=== PATIENT | female | born 2000 | race Caucasian/White ===

== ENCOUNTER → 2023-05-12 16:44 | Outpatient (CLI) | payer SELFPAY ==
[2023-05-12 17:29] LABS: Alanine Aminotransferase 44 U/L (12-78); Albumin Level 4.7 g/dl (3.5-5.0); Albumin/Globulin Ratio 1.8 (1.1-1.8); Alkaline Phosphatase 79 U/L (38-126); Anion Gap 17.1 mEq/L (5-15); Aspartate Amino Transferase 35 U/L (14-36); Bilirubin,Indirect 0.5 mg/dL (0.0-0.9); Bilirubin,Total 0.5 mg/dl (0.2-1.3); Bilirubin,Unconjugated 0.6 mg/dL (0.0-1.1); Blood Urea Nitrogen 16 mg/dl (7-17); Calcium 9.1 mg/dl (8.4-10.2); Carbon Dioxide 22 mmol/L (22.0-30.0); Chloride 104 mmol/L (98-107); Creatine Kinase 51 U/L (30-135); Estimated Glomerular Filt Rate 88 ml/min (>60); GFR (African American) 107 ML/MIN (>60); Globulin 2.6 g/dL (1.3-3.2); Glucose 116 mg/dl (74-100); Potassium 4.1 mmoL/L (3.5-5.1); Sodium 139 mmol/L (136-145); Total Protein,Serum 7.3 g/dl (6.3-8.2)
[2023-05-12 17:31] LABS: Hematocrit 41.8 % (37.0-47.0); Hemoglobin 13.6 g/dL (12.2-16.2); Lymphocytes # 0.8 K/mm3 (0.7-4.5); Lymphocytes % 5.8 % (10-50); Mean Corpuscular HGB Conc 32.5 g/dL (31.8-35.4); Mean Corpuscular Hemoglobin 30.7 pg (27.0-31.2); Mean Corpuscular Volume 94.4 fl (81-99); Mean Platelet Volume 7.6 fl (7.4-10.4); Monocytes # 0.2 K/mm3 (0.1-1.0); Monocytes % 1.6 % (1.7-9.3); Neutrophils # 12.5 K/mm3 (1.8-7.8); Neutrophils % 92.5 % (37.0-80.0); Platelet Count 280 K/mm3 (142-424); Red Blood Count 4.43 M/mm3 (4.20-5.40); White Blood Count 13.5 K/mm3 (4.8-10.8)
[2023-05-12 17:32] LABS: MANUAL DIFFERENTIAL MANUAL DIFFERENTIAL (MANUAL DIFF)
[2023-05-12 17:34] LABS: D-Dimer 0.81 ug/mL (0.0-0.5)
[2023-05-12 17:43] LABS: NT Pro Brain Natriuretic Pep. 125 pg/mL (0-125); Troponin I 0.03 ng/ml (0.00-0.034)
[2023-05-12 20:35] LABS: Lymphocytes % 9 % (10-50); Monocytes % 4 % (2-9); Neutrophils % 87 % (42-76); Platelet Estimate Normal; RBC Morphology Normal; Total Cells Counted 100
== END ==
PROVIDERS: PCP Internal Medicine; Visit Provider Psychiatry & Neurology Neurology
DX: G11.11 Friedreich ataxia (principal)
CPT/HCPCS: 36415; 80053; 80076; 82550; 82565; 83880; 84484; 84520; 85007; 85025; 85378

== ENCOUNTER 2024-04-29 14:11 | Outpatient (CLI) | payer OTHER, SELFPAY ==
[2024-04-29 14:36] LABS: Cholesterol 178 mg/dl (140-200); Triglycerides 61 mg/dl (30-150); VLDL Cholesterol 12 mg/dL (0-40)
[2024-04-29 14:37] LABS: Chol/HDL Ratio 2.4 (1-3.5); HDL Cholesterol 74 mg/dl (40-60)
[2024-04-29 14:48] LABS: Direct LDL Cholesterol 89.89 mg/dL (100-129)
== END 2024-04-29 23:59 | disposition home or self-care (01) ==
LOC: LAB 14:16
PROVIDERS: PCP Internal Medicine
DX: G11.11 Friedreich ataxia (principal)
CPT/HCPCS: 80061

== ENCOUNTER 2024-06-06 11:54 | Outpatient (CLI) | payer OTHER, SELFPAY ==
[2024-06-06 12:46] LABS: Alanine Aminotransferase 26 U/L (12-78); Albumin Level 4.6 g/dl (3.5-5.0); Alkaline Phosphatase 67 U/L (38-126); Aspartate Amino Transferase 24 U/L (14-36); Bilirubin,Indirect 0.4 mg/dL (0.0-0.9); Bilirubin,Total 0.4 mg/dl (0.2-1.3); Bilirubin,Unconjugated 0.6 mg/dL (0.0-1.1); Chol/HDL Ratio 3.4 (1-3.5); Cholesterol 215 mg/dl (140-200); HDL Cholesterol 63 mg/dl (40-60); Triglycerides 67 mg/dl (30-150); VLDL Cholesterol 13 mg/dL (0-40)
[2024-06-06 12:56] LABS: NT Pro Brain Natriuretic Pep. 71.2 pg/mL (0-125)
[2024-06-06 12:58] LABS: Direct LDL Cholesterol 120.92 mg/dL (100-129)
== END 2024-06-06 23:59 | disposition home or self-care (01) ==
LOC: LAB 11:55
PROVIDERS: PCP Internal Medicine; Visit Provider Psychiatry & Neurology Neuromuscular Medicine
DX: G11.11 Friedreich ataxia (principal)
CPT/HCPCS: 36415; 80061; 80076; 83880

== ENCOUNTER 2024-12-25 10:12 | Emergency (ER) | payer OTHER, SELFPAY ==
--- NOTE | 2024-12-25 10:15 | ECG_ITS ---
APPROVED REPORT Exam: Resting ECG HR:136 bpm ECG Measurements Heart Rate 136 AXES OR 115 P 51 QRSd 74 QRS 6 QT 264 T -17 QTc 344 Conclusion SINUS TACHYCARDIA WITH SHORT OR INTERVAL INDETERMINATE AXIS POSSIBLE ANTERIOR MYOCARDIAL INFARCTION , PROBABLY OLD [30 ms Q WAVE IN V3/V4, OR R < 0.2 mV IN V4] No STEMI Electronically signed by : SKY NASSAR, 12/25/2024 17:09:32
[2024-12-25 10:17] VITALS: BP 143/94; PULSE 138; RESP 18; TEMP 36.8; O2SAT 99; BMI 29.7
[2024-12-25 10:55] VITALS: BP 134/89; PULSE 102; O2SAT 98
--- NOTE | 2024-12-25 10:57 | PC.NURSE ---
rounded on pt states no need at this time call magana in reach
--- NOTE | 2024-12-25 11:00 | XR_ITS ---
FINAL REPORT TECHNIQUE: Chest PA & Lateral CLINICAL HISTORY: chest pain , palpitations, syncope COMPARISON: None FINDINGS: 2 views of the chest were performed. The heart size is normal. There is mild pulmonary vascular congestion. The mediastinum is within normal limits. There is no acute cardiopulmonary process. There are no pleural effusions. There is no pneumothorax. Posterior fusion hardware is seen bridging the upper thoracic through mid lumbar spine. IMPRESSION: Mild pulmonary vascular congestion. Reviewed, Interpreted and Dictated by Reji Oliver MD Transcribed by Brook Estrella Authenticated and [facility]
[2024-12-25 11:14] LABS: Basophils % 0.3 % (0.1-2.0); Hemoglobin 14.5 g/dL (12.2-16.2); Neutrophils # 4.1 K/mm3 (1.8-7.8); White Blood Count 6.2 K/mm3 (4.8-10.8)
[2024-12-25] MEDS: LACTATED RINGERS 1000ML 1,000 ML 999 ML IV ×2 (11:20→13:14)
[2024-12-25 11:25] LABS: HCG Qualitative, Serum Negative (Negative)
--- NOTE | 2024-12-25 11:36 | [facility].EDCP ---
Discharge Plan Disposition Patient Disposition: Still a Patient Condition: Good Referrals Follow up/Referrals: Jailene Espinal MD [Primary Care Provider] - See instructions Brian Reyna MD [Staff Physician] - See instructions Activity Restrictions/Add. Instructions Additional Instructions/Restrictions: You elected today to sign out against medical vice with an uptrending troponin. I recommend that you get evaluated by your deaf teacher as soon as you are able. You are also welcome to return to the emergency department for at any time for admission as we discussed given that there appears to be injury ongoing to your heart. Clinical Impressions Clinical Impression: Chest pain, Elevated troponin, Friedreich's ataxia, Cardiomyopathy Print Language Print Language: Bulgarian Discharge ED Provider: Eva Tinoco HPI <Eva Tinoco DO - Last Filed: 12/25/24 16:21> General Chief Complaint: Chest Pain Stated Complaint: cp Time Seen by Provider: 12/25/24 10:43 Mode of Arrival: Ambulatory Source of Information: Patient Limitations: No Limitations Description of Symptoms (Recalled from ER Triage Doc. by RN): Pt presents for evaluation of multiple complaints. Pt states on wednesday she was having abdominal pain that was accompanied with vomiting and diarrhea,denied any urinary sx. Today patient was at work here at [employer] and began to have left sided chest pain that radiated to her left shoulder. Pt states she has had intermittent dizziness. History of Present Illness HPI narrative: This patient is a 24-year-old female with a history of Ammon ataxia presenting to the emergency department for evaluation with concern for possible dehydration, high heart rate, and chest pain. 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 She also notes that she follows with a care team in [place] for this. She states that for the last 2 days, she had had nausea, vomiting, and diarrhea and believes that she had caught a stomach bug. This morning while at work, she started feeling lightheaded and having palpitations with left chest pain radiating to her shoulder. She notes that her heart rate was high, and she thinks it is all related to dehydration but she wanted to come in to get checked out just to be on the safe side with her history. She also had intermittent dizziness associated with this. No other concerns noted at this time, and she states that she is not have any significant belly pain, nausea, vomiting, or diarrhea today. She was able to eat breakfast this morning. Related Data Allergies Allergy/AdvReac Type Severity Reaction Status Date / Time No Known Allergies Allergy Verified 12/25/24 11:19 REPLACED BY [facility] <Eva Tinoco DO - Last Filed: 12/25/24 16:21> REPLACED BY [facility] Disclaimer: The information contained in this section may have been updated after the patient was seen, as this information can be updated by other users. Social History (Updated 12/25/24 @ 16:13 by AROLDO Sprague) Smoking Status: Never smoker alcohol intake: never current occupational status: employed Travel in the last 8 weeks: Inside the [place] Have you lived/traveled outside US in past 30 days?: No Contact w/someone who lives/traveled outside US past 30 days?: No Exposure to someone with infectious disease in past 14 days?: No Do you have a fever (greater than 100.4 F or 38 C)?: No Have you tested positive for COVID-19: No Exposed to someone with COVID-19 in past 14 days?: No Do you have a sore throat?: No Do you have a cough?: No Do you have any weakness?: No Do you have any diarrhea?: No Are you experiencing any unusual bleeding?: No Do you have any muscle aches/pain?: No Do you have any abdominal pain?: No Are you experiencing loss of taste or smell?: No <Eva Tinoco DO - Last Filed: 12/25/24 16:21> ROS Obtained: Yes All systems reviewed & no additional complaints except as documented Physical Exam <Eva Tinoco DO - Last Filed: 12/25/24 16:21> General General appearance: alert and in no apparent distress Head Head exam: atraumatic and normocephalic Eye Eye exam: Present normal appearance, PERRL and EOMI ENT ENT exam: Present normal exam, normal oropharynx, mucous membranes moist and normal external ear exam Neck Neck exam: Present normal inspection, full ROM and trachea midline; Absent tenderness Chest Chest inspection: Present normal inspection and symmetric chest wall rise; Absent tenderness Respiratory Respiratory exam: Present normal lung sounds bilaterally; Absent respiratory distress, wheezes, stridor or accessory muscle use Cardiovascular Cardiovascular exam: Present normal rhythm and tachycardia Abdominal Exam Abdominal exam: Present soft; Absent distention, tenderness or guarding Extremities Exam Extremities exam: Present normal inspection, full ROM and normal capillary refill; Absent tenderness or edema Back Exam Back exam: Present normal inspection and full ROM; Absent tenderness Neurological Exam Neurological exam: Present alert, oriented X3, CN II-XII intact and normal gait; Absent motor sensory deficit Psychiatric Psychiatric exam: Present normal affect and normal mood Skin Skin exam: Present warm and dry HEART Score <Eva Tinoco DO - Last Filed: 12/25/24 16:21> HEART Score HEART Score assessment performed?: Yes History (anamnesis): Slightly suspicious ECG: Normal Age: <45 years Risk factors: 1-2 risk factors Troponin: > 3x normal limit HEART Score: 3 <North Jaquez MD - Last Filed: 12/25/24 18:49> HEART Score HEART Score: 3 Critical Care <Eva Tinoco DO - Last Filed: 12/25/24 16:21> Critical Care Time Critical Care Time: Yes Attestation: On 12/25/24, the high probability of a clinically significant, sudden or life threatening deterioration of the following system(s) required my full and direct attention, intervention and personal management. The time I documented below is in addition to time spent performing reported procedures but includes the following listed in this critical care notation. Total Time Total Critical Care Time: 30 Medical Decision Making <Eva Tinoco DO - Last Filed: 12/25/24 16:21> Humberto Inquiry Pt receiving controlled substance: No Vital Signs Vital Signs: 12/25/24 10:17 12/25/24 10:55 12/25/24 14:39 Temperature 98.2 F 98.3 F Temperature Source Oral Oral Pulse Rate 102 H 89 Pulse Rate [Right] 138 H Respiratory Rate 18 18 Blood Pressure 134/89 111/70 Blood Pressure [Left Arm] 143/94 H Blood Pressure Mean [Left Arm] 110 Blood Pressure Source Automatic Cuff Blood Pressure Source [Left Arm] Automatic Cuff Blood Pressure Position Sitting Blood Pressure Position [Left Arm] Sitting 02 Sat by Pulse Oximetry 99 98 98 Oxygen Delivery Method Room Air Room Air Room Air Lab Data Labs: Lab Results 12/25/24 10:20: WBC 6.2, RBC 4.60, Hgb 14.5, Hct 42.0, MCV 91.3, MCH 31.5 H, MCHC 34.5, RDW 12.0, Plt Count 307, MPV 10.5 H, Neut % (Auto) 65.7, Lymph % (Auto) 25.7, [place] % (Auto) 7.6, Eos % (Auto) 0.5, Baso % (Auto) 0.3, Neut # (Auto) 4.1, Lymph # (Auto) 1.6, [place] # (Auto) 0.5, Eos # (Auto) 0.0, Baso # (Auto) 0.0, D-Dimer 0.42, Sodium 140, Potassium 3.9, Chloride 106, Carbon Dioxide 20 L, Anion Gap 17.9 H, BUN 11, Creatinine 0.70, Estimated Creat Clear 167, Estimated GFR 102, Est GFR ( Amer) 123, Glucose 101 H, Calcium 9.1, Magnesium 1.9, Total Bilirubin 0.8, AST 39 H, ALT 26, Alkaline Phosphatase 62, Troponin I 0.02, C-Reactive Protein 4.2 H, Total Protein 7.4, Albumin 4.9, Globulin 2.5, Albumin/Globulin Ratio 2.0 H, Serum HCG, Qual Negative 12/25/24 13:22: Troponin I 0.10 H 12/25/24 15:39: ESR 8 12/25/24 17:14: Troponin I 0.13 H 12/25/24 10:20 12/25/24 10:20 Response Orders (Tests/Meds): ED MEDICATIONS Discontinued Medications Generic Name Dose Route Start Last Admin Trade Name Freq PRN Reason Stop Dose Admin Lactated Ringer's 1,000 mls @ 999 mls/hr 12/25/24 11:00 12/25/24 11:20 Lactated Ringer's 1000 Ml Bag IV 12/25/24 12:00 999 mls/hr .Q1H1M ONE Administration Lactated Ringer's 1,000 mls @ 999 mls/hr 12/25/24 12:44 12/25/24 13:14 Lactated Ringer's 1000 Ml Bag IV 12/25/24 13:44 999 mls/hr .Q1H1M ONE Administration ORDERS Category Date Time Status Cardiology Consult [Consult to Cardiology] [CONS] Cons 12/25/24 15:01 Active Routine CXR 2 view (NOT portable) [XR chest 2V] Stat Exams 12/25/24 11:00 Completed CRP [C-Reactive Protein] Stat Lab 12/25/24 10:20 Completed Complete Blood Count Auto Diff Stat Lab 12/25/24 10:20 Completed Comprehensive Metabolic Panel Stat Lab 12/25/24 10:20 Completed D-Dimer Stat Lab 12/25/24 10:20 Completed ESR [Erythrocyte Sedimentation Rate] Stat Lab 12/25/24 15:39 Completed Magnesium Stat Lab 12/25/24 10:20 Completed Serum [HCG Qualitative, Serum] Stat Lab 12/25/24 10:20 Completed Trop I [Troponin I] Stat Lab 12/25/24 10:20 Completed Troponin I Q3H Lab 12/25/24 13:22 Completed Troponin I Q3H Lab 12/25/24 17:14 Completed CA echo doppler complete Stat Y 12/25/24 15:17 Completed ECG Data Tracing #1: Attestation: I reviewed this ECG and interpreted as documented below: ECG Narrative: Sinus tachycardia with a ventricular to [address] changes concerning for ischemia. QTc of 344 ms ECG initial impression date: 12/25/24 ECG initial impression time: 10:17 Tracing #2: Attestation: I reviewed this ECG and interpreted as documented below: ECG Narrative: Normal sinus rhythm with a ventricular rate of [address] changes concerning for ischemia. Low voltage ECG initial impression date: 12/25/24 ECG initial impression time: 15:09 MDM Narrative Medical Decision Narrative: In summary, this patient is a 24-year-old female presenting to the Emergency Department for evaluation of chest pain, palpitations, lightheadedness, and concerns that she could be dehydrated after having a GI bug over the weekend. Differential diagnoses considered include but are not limited to ACS, dysrhythmia, hypertrophic cardiomyopathy, PE, pneumonia, pleurisy, dehydration. Ruling out the most morbid conditions drove assessment. It should be noted patient's history includes Ammon ataxia which may or may not be at goal therapy. This complicates all aspects of care by increasing patient's risk for morbidity. On exam, the patient is sitting upright in no acute distress. She is tachycardic but otherwise vitals are reassuring on cardiac telemetry. EKG shows sinus tachycardia without acute ST changes. Workup included CBC, CMP, troponin, test, magnesium, chest x-ray. I cannot use PERC criteria to exclude PE given the patient's tachycardia, so D-dimer was also obtained. Patient was given a bolus of IV fluids. I independently interpreted x-ray prior to the radiologist read and noted no focal consolidation concerning for pneumonia, no pneumothorax. Please see their read for final interpretation. Labs were obtained that demonstrated reassuring CBC with no significant leukocytosis, negative initial troponin, negative D-dimer. Patient's CO2 and anion gap are slightly abnormal, likely due to dehydration.. On reassessment, patient had great improvement after administration of IV fluids. She was given 2 L of IV fluids with improvement in her heart rate from the 130s to the 80s. I feel that she likely had dehydration triggering tachycardia in the setting of history of cardiomyopathy. Her second troponin resulted and was 0.1, which is significantly elevated. Given this, I called and had an interactive discussion with Dr. Reyna with cardiology who recommended stat echo and admission for monitoring. Patient does not want to be admitted, but she is agreeable to obtain echo. I then had an interactive discussion with Sina with cardiology who discussed case with Dr. Bradley, they would like a third troponin and ESR and CRP. Per their report, echocardiogram was reassuring. Patient care signed out to the oncoming provider, Dr. Jaquez, pending third troponin, ESR, CRP. Patient was stable and asymptomatic at time of signout At 1415, patient was placed in ED observation status pending third troponin to determine whether or not the patient would be appropriate for discharge versus admission. The patient was provided serial reevaluations and cardiac monitoring while awaiting ultimate disposition. <North Jaquez MD - Last Filed: 12/25/24 18:49> Vital Signs Vital Signs: 12/25/24 10:17 12/25/24 10:55 12/25/24 14:39 Temperature 98.2 F 98.3 F Temperature Source Oral Oral Pulse Rate 102 H 89 Pulse Rate [Right] 138 H Respiratory Rate 18 18 Blood Pressure 134/89 111/70 Blood Pressure [Left Arm] 143/94 H Blood Pressure Mean [Left Arm] 110 Blood Pressure Source Automatic Cuff Blood Pressure Source [Left Arm] Automatic Cuff Blood Pressure Position Sitting Blood Pressure Position [Left Arm] Sitting 02 Sat by Pulse Oximetry 99 98 98 Oxygen Delivery Method Room Air Room Air Room Air Lab Data Labs: Lab Results 12/25/24 10:20: WBC 6.2, RBC 4.60, Hgb 14.5, Hct 42.0, MCV 91.3, MCH 31.5 H, MCHC 34.5, RDW 12.0, Plt Count 307, MPV 10.5 H, Neut % (Auto) 65.7, Lymph % (Auto) 25.7, [place] % (Auto) 7.6, Eos % (Auto) 0.5, Baso % (Auto) 0.3, Neut # (Auto) 4.1, Lymph # (Auto) 1.6, [place] # (Auto) 0.5, Eos # (Auto) 0.0, Baso # (Auto) 0.0, D-Dimer 0.42, Sodium 140, Potassium 3.9, Chloride 106, Carbon Dioxide 20 L, Anion Gap 17.9 H, BUN 11, Creatinine 0.70, Estimated Creat Clear 167, Estimated GFR 102, Est GFR ( Amer) 123, Glucose 101 H, Calcium 9.1, Magnesium 1.9, Total Bilirubin 0.8, AST 39 H, ALT 26, Alkaline Phosphatase 62, Troponin I 0.02, C-Reactive Protein 4.2 H, Total Protein 7.4, Albumin 4.9, Globulin 2.5, Albumin/Globulin Ratio 2.0 H, Serum HCG, Qual Negative 12/25/24 13:22: Troponin I 0.10 H 12/25/24 15:39: ESR 8 12/25/24 17:14: Troponin I 0.13 H Response Orders (Tests/Meds): ED MEDICATIONS Discontinued Medications Generic Name Dose Route Start Last Admin Trade Name Eddie PRN Reason Stop Dose Admin Lactated Ringer's 1,000 mls @ 999 mls/hr 12/25/24 11:00 12/25/24 11:20 Lactated Ringer's 1000 Ml Bag IV 12/25/24 12:00 999 mls/hr .Q1H1M ONE Administration Lactated Ringer's 1,000 mls @ 999 mls/hr 12/25/24 12:44 12/25/24 13:14 Lactated Ringer's 1000 Ml Bag IV 12/25/24 13:44 999 mls/hr .Q1H1M ONE Administration ORDERS Category Date Time Status Cardiology Consult [Consult to Cardiology] [CONS] Cons 12/25/24 15:01 Active Routine CXR 2 view (NOT portable) [XR chest 2V] Stat Exams 12/25/24 11:00 Completed CRP [C-Reactive Protein] Stat Lab 12/25/24 10:20 Completed Complete Blood Count Auto Diff Stat Lab 12/25/24 10:20 Completed Comprehensive Metabolic Panel Stat Lab 12/25/24 10:20 Completed D-Dimer Stat Lab 12/25/24 10:20 Completed ESR [Erythrocyte Sedimentation Rate] Stat Lab 12/25/24 15:39 Completed Magnesium Stat Lab 12/25/24 10:20 Completed Serum [HCG Qualitative, Serum] Stat Lab 12/25/24 10:20 Completed Trop I [Troponin I] Stat Lab 12/25/24 10:20 Completed Troponin I Q3H Lab 12/25/24 13:22 Completed Troponin I Q3H Lab 12/25/24 17:14 Completed CA echo doppler complete Stat Y 12/25/24 15:17 Completed MDM Narrative Medical Decision Narrative: In summary, this patient is a 24-year-old female presenting to the Emergency Department for evaluation of chest pain, palpitations, lightheadedness, and concerns that she could be dehydrated after having a GI bug over the weekend. Differential diagnoses considered include but are not limited to ACS, dysrhythmia, hypertrophic cardiomyopathy, PE, pneumonia, pleurisy, dehydration. Ruling out the most morbid conditions drove assessment. It should be noted patient's history includes Amomn ataxia which may or may not be at goal therapy. This complicates all aspects of care by increasing patient's risk for morbidity. On exam, the patient is sitting upright in no acute distress. She is tachycardic but otherwise vitals are reassuring on cardiac telemetry. EKG shows sinus tachycardia without acute ST changes. Workup included CBC, CMP, troponin, test, magnesium, chest x-ray. I cannot use PERC criteria to exclude PE given the patient's tachycardia, so D-dimer was also obtained. Patient was given a bolus of IV fluids. I independently interpreted x-ray prior to the radiologist read and noted no focal consolidation concerning for pneumonia, no pneumothorax. Please see their read for final interpretation. Labs were obtained that demonstrated reassuring CBC with no significant leukocytosis, negative initial troponin, negative D-dimer. Patient's CO2 and anion gap are slightly abnormal, likely due to dehydration.. On reassessment, patient had great improvement after administration of IV fluids. She was given 2 L of IV fluids with improvement in her heart rate from the 130s to the 80s. I feel that she likely had dehydration triggering tachycardia in the setting of history of cardiomyopathy. Her second troponin resulted and was 0.1, which is significantly elevated. Given this, I called and had an interactive discussion with Dr. Reyna with cardiology who recommended stat echo and admission for monitoring. Patient does not want to be admitted, but she is agreeable to obtain echo. I then had an interactive discussion with Sina with cardiology who discussed case with Dr. Bradley, they would like a third troponin and ESR and CRP. Per their report, echocardiogram was reassuring. Patient care signed out to the oncoming provider, Dr. Jaquez, pending third troponin, ESR, CRP. Patient was stable and asymptomatic at time of signout At 1415, patient was placed in ED observation status pending third troponin to determine whether or not the patient would be appropriate for discharge versus admission. The patient was provided serial reevaluations and cardiac monitoring while awaiting ultimate disposition. oNrth Jaquez: Upon assumption of care patient was hemodynamically stable. Cardiology consulted with the patient, echo was reportedly not concerning they recommend serial troponins for third time and if it is uptrending she needs to be admitted. Patient continues to have uptrending troponins from 0.02 to 0.10 to 0.13. The differential for uptrending troponins is broad and is concerning given her age. In no uncertain terms it was discussed with her by both me and the deaf teacher the necessity of admission and that there is no way to know how her troponins will continue to trend and that her condition could deleteriously worsen to the point of injury and . She understands these risks and has capacity per the U-ARE criteria and wishes to sign out against medical vice at this time.
[2024-12-25 12:20] LABS: Eosinophils % 0.5 % (0.1-12.0); Lymphocytes # 1.6 K/mm3 (0.7-4.5); Lymphocytes % 25.7 % (10-50); Mean Corpuscular HGB Conc 34.5 g/dL (31.8-35.4); Mean Corpuscular Hemoglobin 31.5 pg (27.0-31.2); Mean Corpuscular Volume 91.3 fl (81-99); Mean Platelet Volume 10.5 fl (7.4-10.4); Monocytes # 0.5 K/mm3 (0.1-1.0); Monocytes % 7.6 % (1.7-9.3); Neutrophils % 65.7 % (37.0-80.0); Platelet Count 307 K/mm3 (142-424)
--- NOTE | 2024-12-25 12:21 | PC.NURSE ---
Called Labd to check time remaining on CBC & CMP results. Merlyn states the CBC will be 5 min and the chemistry analyzer is down and will take 30 min at least. aware.
--- NOTE | 2024-12-25 12:35 | PC.NURSE ---
1200 pt resting comfortably in bed at this time. Declines any needs at this time.
[2024-12-25 12:38] LABS: Albumin Level 4.9 g/dl (3.5-5.0); Chloride 106 mmol/L (98-107); Sodium 140 mmol/L (136-145)
[2024-12-25 12:39] LABS: Potassium 3.9 mmoL/L (3.5-5.1)
[2024-12-25 12:41] LABS: Alanine Aminotransferase 26 U/L (12-78); Alkaline Phosphatase 62 U/L (38-126); Anion Gap 17.9 mEq/L (5-15); Aspartate Amino Transferase 39 U/L (14-36); Bilirubin,Total 0.8 mg/dl (0.2-1.3); Blood Urea Nitrogen 11 mg/dl (7-17); Carbon Dioxide 20 mmol/L (22.0-30.0); Creatinine Clearance Estimated 167 mL/min (50-200); Estimated Glomerular Filt Rate 102 ml/min (>60); GFR (African American) 123 ML/MIN (>60); Globulin 2.5 g/dL (1.3-3.2); Total Protein,Serum 7.4 g/dl (6.3-8.2)
[2024-12-25 12:42] LABS: Calcium 9.1 mg/dl (8.4-10.2); Glucose 101 mg/dl (74-100); Magnesium 1.9 mg/dl (1.6-2.3)
[2024-12-25 12:48] LABS: D-Dimer 0.42 ug/mL (0.0-0.5)
[2024-12-25 12:52] LABS: Troponin I 0.02 ng/ml (0.00-0.034)
[2024-12-25 14:39] VITALS: BP 111/70; PULSE 89; RESP 18; TEMP 36.8; O2SAT 98
--- NOTE | 2024-12-25 15:08 | ECG_ITS ---
APPROVED REPORT Exam: Resting ECG HR:83 bpm ECG Measurements Heart Rate 83 AXES ND 119 P 17 QRSd 78 QRS 5 QT 365 T -6 QTc 405 Conclusion SINUS RHYTHM WITH SHORT ND INTERVAL LOW QRS VOLTAGE IN PRECORDIAL LEADS [QRS DEFLECTION < 1.0 mV IN CHEST LEADS] POSSIBLE ANTERIOR MYOCARDIAL INFARCTION , PROBABLY OLD [30 ms Q WAVE IN V3/V4, OR R < 0.2 mV IN V4] BORDERLINE ECG Electronically signed by : BRI SERRANO, 12/25/2024 21:33:18
--- NOTE | 2024-12-25 15:12 | PC.NURSE ---
Dr Li to write order and get patient up Stairs
--- NOTE | 2024-12-25 15:17 | CA_ITS ---
APPROVED REPORT EXAM: Comprehensive 2D, Doppler, and color-flow Echocardiogram Geospatial Systems Integrator: Alma Colon RVT Ht: 5 ft 7 in Wt: 190lbs BSA: 1.98 BP: 134/89 mmHg Indications: CP,FRIEDREICH ATAXIA,ELEVATED TROP,PALPS 2D Dimensions LA Volume 21.50 mL LA Volume Index 10.86 mL/m2 (M/F) 16-34 M-Mode Dimensions RVDd 1.97 cm (0.9-2.6) LA Diam 2.98 cm (1.9-4.0) LVDd 4.01 cm (3.5-5.7) LVDs 2.40 cm (3.5-5.7) IVSd 0.97 cm (0.6-1.1) PWd 0.72 cm (0.6-1.1) EF (Teich) 71.30% FS 40.10% EDV (Teich) 70.40 mL ESV (Teich) 20.20 mL LV Diastology E Decel Time 150 (160-240 msec) E/A Ratio 1.4 Aortic Valve AO Peak GR. 5.60 mmHg Mitral Valve MV E Max Best. 81.0 (40-130 cm/s) MV A Velocity 60.0 (40-130 cm/s) E/A Ratio 1.34 MV PHT 44.0 ms Pulmonary Valve PV Peak Velocity 118.0 (50-150 cm/s) Left Ventricle The left ventricle is normal size. The left ventricular systolic function is normal. The left ventricular ejection fraction is within the normal range. There is normal left ventricular wall thickness. There is normal LV segmental wall motion. The left ventricular diastolic function is normal. LVEF is 55%. Right Ventricle The right ventricle is normal size. The right ventricular systolic function is normal. Atria The left atrium size is normal. The right atrium size is normal. There is no Doppler evidence of interatrial shunt. Aortic Valve The aortic valve opens well. There is no aortic valvular stenosis. Trace aortic regurgitation. Mitral Valve The mitral valve is normal in structure. No evidence of mitral valve stenosis. Mild mitral regurgitation. Tricuspid Valve The tricuspid valve leaflets are thin and pliable. Trace tricuspid regurgitation. There is insufficient TR jet to estimate RVSP. Pulmonic Valve The pulmonary valve is normal in structure. Trace pulmonic regurgitation. Great Vessels The aortic root is normal in size. The ascending aorta is normal in size. IVC is normal in size and collapses >50% with inspiration. Pericardium There is no pericardial effusion. Other Information Study Quality: Fair Conclusion Normal biventricular systolic function. Normal LV wall thickness. Mild MR. Electronically signed by : Mirna Gonsalves MD 12/26/2024 10:20:22
--- NOTE | 2024-12-25 15:39 | P.CONCA_ITS ---
History of Present Illness History of Present Illness Consult date: 12/25/24 Requesting physician: Eva Tinoco Chief complaint: elevated troponin, CHF, friederick's ataxia Additional Medical History:: 1. Friedreich's ataxia, diagnosed 2019 A. Gene therapy clinical trial medication, clinic based in [place] B. History of mild cardiomyopathy C. [facility] with a [facility] [place] [facility] History of present illness: This patient is a 24-year-old female with a history of Ammon ataxia presenting to the emergency department for evaluation with concern for possible dehydration, high heart rate, and chest pain. Patient states that she has a history of mild cardiomyopathy related to her Ammon ataxia and is a clinical trial for gene therapy for cardiac dysfunction in [place]. She also notes that she follows with a care team in [place] for this. She states that for the last 2 days, she had had nausea, vomiting, and diarrhea and believes that she had caught a stomach bug. This morning while at work, she started feeling lightheaded and having palpitations with left chest pain radiating to her shoulder. She notes that her heart rate was high, and she thinks it is all related to dehydration but she wanted to come in to get checked out just to be on the safe side with her history. She also had intermittent dizziness associated with this. No other concerns noted at this time, and she states that she is not have any significant belly pain, nausea, vomiting, or diarrhea today. She was able to eat breakfast this morning. The above per CHITO Crocker MD Events above confirmed with patient. Clinically feeling better now and wants to go home. Will get echo and ESR,CRP PFSH PFS Disclaimer: The information contained in this section may have been updated after the patient was seen, as this information can be updated by other users. Social History Smoking Status: Never smoker alcohol intake: never current occupational status: employed Travel in the last 8 weeks: Inside the [place] Review of Systems Review of Systems Review of systems:: pertinent systems reviewed and negative unless documented below *Cardiovascular Cardiovascular: Reports chest pain and Reports dyspnea on exertion *Respiratory Respiratory: Reports dyspnea on exertion *Gastrointestinal Gastrointestinal: Reports vomiting Exam Data for Last 24 hours Vital signs and Labs for Last 24 Hours: Temp Pulse Resp BP Pulse Ox O2 Del Method 98.3 F 89 18 111/70 98 Room Air 12/25/24 14:39 12/25/24 14:39 12/25/24 14:39 12/25/24 14:39 12/25/24 14:39 12/25/24 14:39 Laboratory Results - last 24 hr 12/25/24 10:20: WBC 6.2, RBC 4.60, Hgb 14.5, Hct 42.0, MCV 91.3, MCH 31.5 H, MCHC 34.5, RDW 12.0, Plt Count 307, MPV 10.5 H, Neut % (Auto) 65.7, Lymph % (Auto) 25.7, [place] % (Auto) 7.6, Eos % (Auto) 0.5, Baso % (Auto) 0.3, Neut # (Auto) 4.1, Lymph # (Auto) 1.6, [place] # (Auto) 0.5, Eos # (Auto) 0.0, Baso # (Auto) 0.0, D-Dimer 0.42, Sodium 140, Potassium 3.9, Chloride 106, Carbon Dioxide 20 L, Anion Gap 17.9 H, BUN 11, Creatinine 0.70, Estimated Creat Clear 167, Estimated GFR 102, Est GFR ( Amer) 123, Glucose 101 H, Calcium 9.1, Magnesium 1.9, Total Bilirubin 0.8, AST 39 H, ALT 26, Alkaline Phosphatase 62, Troponin I 0.02, Total Protein 7.4, Albumin 4.9, Globulin 2.5, Albumin/Globulin Ratio 2.0 H, Serum HCG, Qual Negative 12/25/24 13:22: Troponin I 0.10 H I & O for Last 24 hours: Intake & Output 12/23/24 12/24/24 12/25/24 12/26/24 11:59 11:59 11:59 11:59 Weight 190 lb Constitutional Constitutional: no acute distress *Routine Respiratory Exam Respiratory: Present CTA bilaterally; Absent wheezes or crackles *Routine Cardiovascular Exam Cardiovascular: Present RRR; Absent murmur, gallop or rubs *Routine Extremities Exam Extremities: Absent edema *Routine Neurological Exam Neurological: Present alert, oriented X3 and CN II-XII intact Meds Home Medications and Allergies New Prescriptions to Start Prescriptions: Allergies Allergy/AdvReac Type Severity Reaction Status Date / Time No Known Allergies Allergy Verified 12/25/24 11:19 Assessment and Plan *Assessment and plan (1) Elevated troponin: Status: Acute Category: Medical Code(s): R79.89 - Other specified abnormal findings of blood chemistry (2) Chest pain: Status: Acute Qualifiers: Chest pain type: unspecified Qualified Code(s): R07.9 - Chest pain, unspecified Category: Medical Code(s): R07.9 - Chest pain, unspecified (3) Friedreich's ataxia: Status: Acute Category: Medical Code(s): G11.11 - Friedreich ataxia (4) CHF (congestive heart failure): Status: Acute Qualifiers: Heart failure type: high output Qualified Code(s): I50.83 - High output heart failure Category: Medical Code(s): I50.9 - Heart failure, unspecified Plan 1. Chest pain/Elevated troponin in setting of viral illness with N/V and dehydration and sinus tachycardia -Echo shows normal LVEF without wall motion abnormalities -No evidence of pericardial effusion -check 3rd troponin and if stable then ok for discharge -check ESR and CRP and if elevated then consider indomethacin -sinus tach resolved with IV fluids 2. Friedreich's ataxia, diagnosed 2019 -Currently on a clinical trial for gene therapy for cardiac dysfunction in [place] 3. CHF/vascular congestion in the lungs, high output due to tachycardia related to dehydration -Clinically stable -vascular congestion should clear on it's own with normal LVEF Check ESR, CRP and third troponin. Echo is normal. [facility] 1-2 wks.
--- NOTE | 2024-12-25 15:50 | PC.NURSE ---
pt is gone to echo at this tiime via wheelchair
[2024-12-25 16:07] LABS: C-Reactive Protein 4.2 mg/L (0-4)
[2024-12-25 16:34] LABS: Erythrocyte Sedimentation Rate 8 mm/hr (0-20)
[2024-12-25 17:43] LABS: Troponin I 0.13 ng/ml (0.00-0.034)
[2024-12-25 18:54] VITALS: BP 149/90; PULSE 98; RESP 18; TEMP 36.8; O2SAT 99
== END 2024-12-25 19:02 | disposition left against medical advice (07) ==
PROVIDERS: Emergency Provider Emergency Medicine; PCP Internal Medicine
DX: G11.11 Friedreich ataxia (principal); I42.9 Cardiomyopathy, unspecified; I50.83 High output heart failure; R79.89 Other specified abnormal findings of blood chemistry; R07.9 Chest pain, unspecified; R42 Dizziness and giddiness; R00.2 Palpitations; R11.2 Nausea with vomiting, unspecified; R10.9 Unspecified abdominal pain; R19.7 Diarrhea, unspecified; M25.512 Pain in left shoulder; Z53.29 Procedure and treatment not carried out because of patient's decision for other reasons
CPT/HCPCS: 71046; 80053; 83735; 84484; 84703; 85025; 85378; 85651; 86140; 93005; 93306; 96360; 96361; 99285; J7120

== ENCOUNTER 2025-03-06 06:11 | Outpatient (CLI) | payer OTHER, SELFPAY ==
[2025-03-06 07:44] LABS: Albumin Level 4.8 g/dl (3.5-5.0)
[2025-03-06 07:46] LABS: Bilirubin,Unconjugated 0.5 mg/dL (0.0-1.1)
[2025-03-06 07:47] LABS: Alanine Aminotransferase 24 U/L (12-78); Alkaline Phosphatase 64 U/L (38-126); Aspartate Amino Transferase 30 U/L (14-36); Bilirubin,Direct 0.1 mg/dl (0.0-0.4); Bilirubin,Indirect 0.4 mg/dL (0.0-0.9); Bilirubin,Total 0.5 mg/dl (0.2-1.3); Chol/HDL Ratio 3.5 (1-3.5); Cholesterol 198 mg/dl (140-200); HDL Cholesterol 56 mg/dl (40-60); Total Protein,Serum 7.7 g/dl (6.3-8.2); Triglycerides 70 mg/dl (30-150); VLDL Cholesterol 14 mg/dL (0-40)
[2025-03-06 07:56] LABS: NT Pro Brain Natriuretic Pep. 56.3 pg/mL (0-125)
[2025-03-06 07:58] LABS: Direct LDL Cholesterol 109.66 mg/dL (100-129)
== END 2025-03-06 23:59 | disposition home or self-care (01) ==
LOC: LAB 06:12
PROVIDERS: PCP Internal Medicine; Visit Provider Psychiatry & Neurology Neuromuscular Medicine
DX: G11.11 Friedreich ataxia (principal)
CPT/HCPCS: 36415; 80061; 80076; 83880

== ENCOUNTER 2025-03-30 06:11 | Outpatient (CLI) | payer OTHER, SELFPAY ==
[2025-03-30 07:50] LABS: Alanine Aminotransferase 21 U/L (12-78); Albumin Level 4.7 g/dl (3.5-5.0); Alkaline Phosphatase 62 U/L (38-126); Aspartate Amino Transferase 20 U/L (14-36); Bilirubin,Direct 0.1 mg/dl (0.0-0.4); Bilirubin,Indirect 0.3 mg/dL (0.0-0.9); Bilirubin,Total 0.4 mg/dl (0.2-1.3); Bilirubin,Unconjugated 0.3 mg/dL (0.0-1.1); Chol/HDL Ratio 3.8 (1-3.5); Cholesterol 203 mg/dl (140-200); HDL Cholesterol 53 mg/dl (40-60); Total Protein,Serum 6.9 g/dl (6.3-8.2); Triglycerides 59 mg/dl (30-150); VLDL Cholesterol 12 mg/dL (0-40)
[2025-03-30 08:00] LABS: NT Pro Brain Natriuretic Pep. 44.4 pg/mL (0-125)
[2025-03-30 08:01] LABS: Direct LDL Cholesterol 117.24 mg/dL (100-129)
== END 2025-03-30 23:59 | disposition home or self-care (01) ==
LOC: LAB 06:13
PROVIDERS: PCP Internal Medicine; Visit Provider Psychiatry & Neurology Neuromuscular Medicine
DX: G11.11 Friedreich ataxia (principal)
CPT/HCPCS: 36415; 80061; 80076; 83880

== ENCOUNTER 2025-05-16 06:07 | Outpatient (CLI) | payer OTHER, SELFPAY ==
--- OUTSIDE RECORDS SUMMARY | 2025-05-16 06:10 | XMS_ITS | Clinical Summary ---
Author Organization [facility] 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 Infectious mononucleosis 09/28/2014 Overview (02/14/2022): 08/2014 Reactive airway disease 09/14/2012 Allergic rhinitis due to allergen 09/14/2012 Other secondary scoliosis, thoracolumbar region 09/14/2012 Immunizations Immunization Administration Dates Next Due DTaP vaccine 03/01/2003, 0,1999,06/12,1999 HPV (Human Papilloma Virus)Vaccine 10/01/2015,,04/10/2015 Hepatitis B vaccine 1999,1999,1998 Hib vaccine 1999,1999,1999 Influenza Virus Vaccine 11/02/2003 MMR, PRIORIX, M-M-R II, (age 12m+), SC, 0.5mL 03/01/2003,08/10/2000 Meningococcal ACWY, MENACTRA (MenACWY-D), (age 9m-55y), IM, 0.5mL 07/02/2016 Pneumococcal Vaccine 08/10/2000,03/04/2000 Poliovirus, IPOL, (age 6w+), SC/IM, 0.5mL 03/01/2003,08/10/2000,1999,04/15 TDaP, ADACEL (age 10y-64y), BOOSTRIX (age 10y+), IM, 0.5mL 05/08/2010 Varicella, VARIVAX, (age 12m +), SC, 0.5mL 03/04/2006 Social History Tobacco Use Types Packs/Day Years Used Date Smoking Tobacco: Never Assessed Comments Unknown Sex and Gender Information Value Date Recorded Sex Assigned at Not on file Legal Sex Female 2:18 AM EST Gender Identity Not on file Sexual Orientation Not on file Last Filed Vital Signs Vital Sign Reading Time Taken Comments Blood Pressure 120/70 07/02/2016 2:48 PM EDT Pulse 106 03/20/2016 9:53 AM EDT Temperature - - Respiratory Rate - - Oxygen Saturation - - Inhaled Oxygen Concentration - - Weight 70.8 kg (156 lb) 07/02/2016 2:48 PM EDT Height 167.6 cm (5' 6 ) 07/02/2016 2:48 PM EDT Body Mass Index 25.18 07/02/2016 2:48 PM EDT Plan of Treatment Not on file Care Teams Tufter Relationship Specialty Start Date End Date Jailene Espinal MD PCP - General 02/16/19
--- OUTSIDE RECORDS SUMMARY | 2025-05-16 06:10 | XMS_ITS | Clinical Summary ---
Author Organization Healthcare Address [address] [place] [address] Care Team Providers Care Internal Combustion Engineer Name Role Phone Jailene Espinal MD Primary Care Provider [phone]- [phone] Allergies No known active allergies Medications gabapentin (Neurontin) 300 MG capsule Take 2 capsules (600 mg) by mouth 3 times a day. 09/28/2023 Active Semaglutide-Ab ght Management 0.25 MG/0.5ML solution auto-injector Inject 0.25 mg under the skin. 12/29/2023 Active Family History Medical History Relation Name Comments Diabetes Other 1 Diabetes Other 2 Relation Name Status Comments Other 1 Other 2 Social History Tobacco Use Types Packs/Day Years Used Date Smoking Tobacco: Never Smokeless Tobacco: Never Tobacco Cessation:Counseling Given: Not Answered Alcohol Use Standard Drinks/Week Comments No 0 (1 standard drink = 0.6 oz pur e alcohol) PHQ-2 Answer Date Recorded Patient Health Questionnaire-2 Score 0 07/17/2022 Comments Unknown Sex and Gender Information Value Date Recorded Sex Assigned at Not on file Legal Sex Female 6:17 PM EDT Gender Identity Not on file Sexual Orientation Not on file Last Filed Vital Signs Vital Sign Reading Time Taken Comments Blood Pressure 126/93 08/25/2024 8:44 AM EDT Pulse 81 08/25/2024 8:44 AM EDT Temperature 36.4 C (97.6 F) 08/25/2024 8:44 AM EDT Respiratory Rate - - Oxygen Saturation 97% 08/25/2024 8:44 AM EDT Inhaled Oxygen Concentration - - Weight 97.5 kg (215 lb) 08/25/2024 8:44 AM EDT Height 167.6 cm (5' 6 ) 08/25/2024 8:44 AM EDT Body Mass Index 34.7 08/25/2024 8:44 AM EDT Plan of Treatment Health Maintenance Due Date Last Done Comments [facility]-HIV Screening 1999 [facility]-Hepatitis C Screening 1999 [facility]-/Child/Adol SDOH Screenings 1999 [facility]-Varicella Vaccines (2 of 2 - 2-dose childhood series) 05/27/2006 03/04/2006 [facility]- SDOH Screenings 2017 [facility]-Adult SDOH Screenings 2017 [facility]-Pap Smear 02/21/2020 [facility]-Depression Screening 07/17/2023 07/17/2022 [id number] Vaccine (2 - season) 2024 04/15/2021 [facility]-Influenza Vaccine (Season Ended) 2025 10/08/2020, 11/02/2003 [facility]-DTaP,Tdap,and Td Vaccines (8 - Td or Tdap) 11/27/2030 11/27/2020, 05/08/2010, 03/01/2003, Additional history exists [facility]-Zoster Vaccines (1 of 2) 2049 03/04/2006 [facility]-HIB Vaccines Aged Out 1999, , 1999 No longer eligible based on patient's age to complete this topic [facility]-Hepatitis B Vaccines Completed 999, 1999, 1999 [facility]-Pneumococcal Vaccine: Pediatrics (0 to 5 Years) and At-Risk Patients (6 to 49 Years) Aged Out 08/10/2000, 08/10/2000, 03/04/2000, Additional history exists No longer eligible based on patient's age to complete this topic [facility]-IPV Vaccines Completed 03/01/2003, 10/2000, 1999, Additional history exists HPV Vaccines Completed 10/01/2015, 04/30, 04/10/2015 [facility]-Obesity Intervention Completed 08/25/2024 [facility]-Hepatitis A Vaccines Aged Out No longer eligible based on patient's age to complete this topic [facility]-Rotavirus Vaccines Aged Out No lo nger eligible based on patient's age to complete this topic Insurance [facility] [address] Care Teams Internal Combustion Engineer Relationship Specialty Start Date End Date Jailene Espinal MD [address] [place] [address] PCP - General 08/25/24
[2025-05-16 08:45] LABS: Albumin Level 4.7 g/dl (3.5-5.0); Chloride 110 mmol/L (98-107); Potassium 4.3 mmoL/L (3.5-5.1); Sodium 137 mmol/L (136-145)
[2025-05-16 08:48] LABS: Alanine Aminotransferase 19 U/L (12-78); Albumin/Globulin Ratio 1.8 (1.1-1.8); Alkaline Phosphatase 75 U/L (38-126); Anion Gap 9.3 mEq/L (5-15); Aspartate Amino Transferase 21 U/L (14-36); Bilirubin,Total 0.3 mg/dl (0.2-1.3); Blood Urea Nitrogen 10 mg/dl (7-17); Carbon Dioxide 22 mmol/L (22.0-30.0); Cholesterol 206 mg/dl (140-200); Estimated Glomerular Filt Rate 101 ml/min (>60); GFR (African American) 122 ML/MIN (>60); Globulin 2.6 g/dL (1.3-3.2); Total Protein,Serum 7.3 g/dl (6.3-8.2); Triglycerides 58 mg/dl (30-150); VLDL Cholesterol 12 mg/dL (0-40)
[2025-05-16 08:49] LABS: Calcium 9.6 mg/dl (8.4-10.2); Glucose 89 mg/dl (74-100); HDL Cholesterol 51 mg/dl (40-60)
[2025-05-16 08:57] LABS: NT Pro Brain Natriuretic Pep. 92.4 pg/mL (0-125)
[2025-05-16 09:31] LABS: Gamma Glutamyl Transpeptidase 15 U/L (12-43)
== END 2025-05-16 23:59 | disposition home or self-care (01) ==
PROVIDERS: PCP Internal Medicine; Visit Provider Nurse Practitioner
DX: G11.11 Friedreich ataxia (principal); Z51.81 Encounter for therapeutic drug level monitoring
CPT/HCPCS: 36415; 80053; 80061; 82977; 83880